=== PATIENT | male | born 1955 | race Caucasian/White ===

== ENCOUNTER 2017-09-11 07:29 | Day surgery (SDC) | END 2017-09-11 11:51 | disposition home or self-care (01) ==

== ENCOUNTER 2018-04-28 22:29 | Emergency (ER) | payer BC ==
[~2018-04-28] VITALS: Wt 76.5 kg
[~2018-04-28 22:29] MED LIST: NO MEDS.
[2018-04-28] MEDS ORDERED: ALBU8.5H8 INH (23:00)
[2018-04-28] MEDS ORDERED: IBUP-1542 PO (23:00)
[2018-04-28] MEDS ORDERED: IBUPROFEN 600 MG TAB PO ONE (23:00)
[2018-04-28 23:09] VITALS: BP 151/80; PULSE 82; RESP 19
--- NOTE | 2018-04-29 06:33 | ERD ---
ER Documentation Chief Complaint Chief Complaint bib pd from detention for cough, patient is not in custody HPI 62-year-old man complains of 2 days of cough, he spent last night in detention. He also has nasal congestion denies fevers or chills, no chest pain, no calf or leg swelling, no vomiting or diarrhea. ROS All systems reviewed and are negative except as per history of present illness. Medications Home Meds Active Scripts Ibuprofen* (Motrin*) 600 Mg Tab, 600 MG PO Q8 PRN for PAIN AND/OR INFLAMMATION, #30 TAB Prov:JOSEPH VU MD 04/28/18 Albuterol Sulfate* (Proair HFA*) 8.5 Gm Hfa.aer.ad, 2 PUFF INH Q4, #1 INHALER Prov:JOSEPH VU MD 04/28/18 Reported Medications [No Meds.] No Conflict Check 09/11/17 Allergies Allergies: Coded Allergies: No Known Allergy (Unverified , 09/11/17) PMhx/Soc Medical and Surgical Hx: pt denies Medical Hx, pt denies Surgical Hx History of Surgery: No Anesthesia Reaction: No Hx Neurological Disorder: No Hx Respiratory Disorders: No Hx Cardiac Disorders: No Hx Psychiatric Problems: No Hx Miscellaneous Medical Probl: Yes (ANEMIA) Hx Alcohol Use: Yes (STOPPED) Hx Substance Use: No Hx Tobacco Use: No Smoking Status: Never smoker FmHx Family History: No diabetes Physical Exam Vitals Vital Signs Date Temp Pulse Resp B/P (MAP) Pulse Ox O2 O2 Flow FiO2 Time Delivery Rate 04/28/18 98.3 82 19 151/80 96 Room Air 23:09 (103) 04/28/18 98.3 99 19 144/89 96 22:32 (107) Physical Exam Const: No acute distress, afebrile Head: Atraumatic Eyes: Normal Conjunctiva ENT: Normal External Ears, Nose and Mouth. Neck: Full range of motion. No meningismus. Resp: Clear to auscultation bilaterally Cardio: Regular rate and rhythm, no murmurs Abd: Soft, non tender, non distended. Normal bowel sounds Skin: No petechiae or rashes Back: No midline or flank tenderness Ext: No cyanosis, or edema Neur: Awake and alert x3, no focal deficits or facial asymmetry Psych: Normal Mood and Affect Results 24 hrs Current Medications Medications Dose Sig/Adelina Start Time Status Last (Trade) Ordered Route PRN Stop Time Admin Dose Reason Admin Ibuprofen 600 mg ONCE ONCE 04/28/18 DC 04/28/18 (Motrin) PO 23:00 04/28/18 22:50 23:01 Procedures/MDM I administered ibuprofen 600 mg p.o. x1. One AP view of the chest performed, read by me reveals no acute infiltrates, normal mediastinum, sharp costophrenic and cardiac borders, no air under the diaphragm. Otherwise unremarkable chest x-ray. Patient feels much better at this time, and vital signs are normal, symptoms have improved. I did give strict instructions to return to the ED if symptoms continue or worsen, patient will otherwise follow-up with primary care physic christal. Patient understood instructions and agreed to plan. Disclaimer: Inadvertent spelling and grammatical errors are likely due to EHR/dictation software use and do not reflect on the overall quality of patient care. Also, please note that the electronic time recorded on this note does not necessarily reflect the actual time of the patient encounter. Departure Diagnosis: Primary Impression: Cough Condition: Good Patient Instructions: Uri, Viral, No Abx (Adult) Referrals: [facility] CATRACH[facility] CARLOS (PCP) JOSEPH VU MD Apr 29, 2018 06:33
== END 2018-04-28 23:11 | disposition home or self-care (01) ==
LOC: E/R 22:29
DX: R05 Cough (principal)
CPT/HCPCS: 71045; 99283; Z7610